=== PATIENT | male | born 1940 | race Caucasian/White ===

== ENCOUNTER 2019-04-15 10:07 | Emergency (ER) | payer OTHER ==
[~2019-04-15] VITALS: Ht 175.2 cm; Wt 86.2 kg
[~2019-04-15 10:07] MED LIST: AMARYL2 MG PO; ASPIR-LOW81 MG PO; BLOOD PRESSURE MED; CHOLESTEROL; CITALOPRAM20 MG PO; FENOFIBRATE160 MG PO; LISINOPRIL/HCTZ1 TA1 PO; LOPRESSOR25 MG PO; METFORMIN500 MG PO; PANTOPRAZOLE40 MG PO; PLAVIX75 MG PO; PRAVACHOL40 MG PO; PRILOSEC20 M1 PO; SUGAR MED; VIAGRA50 MG PO
[2019-04-15 10:48] LABS: BASO % 0.3 % (0.0-1.0); HEMOGLOBIN 15.2 g/dl (14.0-18.0); LYMPH # 0.9 10*3/uL (1.3-4.4); LYMPH % 8.3 % (27.0-41.0); MEAN CELL VOLUME 91.1 fl (80.0-94.0); MEAN CORPUSCULAR HGB 31.5 pg (27.0-31.0); MEAN CORPUSCULAR HGB CONC 34.5 g/dl (33.0-37.0); MONO # 0.5 10*3/uL (0.1-1.0); MONO % 4.6 % (3.0-9.0); NEUT # 9.2 10*3/uL (2.3-7.9); NEUT % 86.3 % (47.0-73.0); PLATELET COUNT AUTOMATED 172 10*3/uL (130-400); RED BLOOD COUNT 4.83 10*6/uL (4.50-5.90); RED CELL DISTRI WIDTH 13.6 % (0-14.5); WHITE BLOOD COUNT 10.7 10*3/uL (4.8-10.8)
[2019-04-15 11:06] LABS: ALBUMIN 3.3 gm/dl (3.1-4.5); CREATININE 1.77 mg/dL (0.70-1.30); POTASSIUM 4.4 mmol/L (3.5-5.1); TOTAL PROTEIN 7.5 gm/dL (6.4-8.2)
[2019-04-15 11:30] LABS: BILIRUBIN NEGATIVE (NEGATIVE); BLOOD 1+ (NEGATIVE); CLARITY SL CLOUDY (CLEAR); COLOR YELLOW (YELLOW); GLUCOSE TRACE (NEGATIVE); KETONE 1+ (NEGATIVE); LEUKO ESTERASE NEGATIVE (NEGATIVE); NITRITE NEGATIVE (NEGATIVE); SPECIFIC GRAVITY 1.025 (1.005-1.030)
[2019-04-15 11:44] LABS: BACTERIA 2+; MUCOUS 1+
[2019-07-31] MEDS ORDERED: PRAVASTATIN SOD80 MG PO (15:42)
[2019-07-31] MEDS ORDERED: LOPRESSOR50 M1 PO (15:44)
[2019-07-31] MEDS ORDERED: PRINIVIL10 MG PO (15:44)
[2019-07-31] MEDS ORDERED: TAMSULOSIN HCL0.4 MG PO (15:45)
== END 2019-04-15 13:30 | disposition short-term general hospital (02) ==
LOC: ED 10:07
PROVIDERS: Nurse Practitioner Family
DX: N13.2 Hydronephrosis with renal and ureteral calculous obstruction (principal); I10 Essential (primary) hypertension; E11.9 Type 2 diabetes mellitus without complications; Z86.73 Personal history of transient ischemic attack (TIA), and cerebral infarction without residual deficits; Z87.442 Personal history of urinary calculi; Z79.899 Other long term (current) drug therapy; Z79.82 Long term (current) use of aspirin; Z79.84 Long term (current) use of oral hypoglycemic drugs

== ENCOUNTER → 2019-08-05 | Day surgery (SDC) | payer OTHER ==
[2019-08-01 11:16] LABS: BASO % 0.6 % (0.0-1.0); EOS # 0.2 10*3/uL (0.0-0.4); EOS % 2.7 % (1.0-4.0); HEMOGLOBIN 13.4 g/dl (14.0-18.0); LYMPH # 1.6 10*3/uL (1.3-4.4); LYMPH % 23.4 % (27.0-41.0); MEAN CELL VOLUME 90.5 fl (80.0-94.0); MEAN CORPUSCULAR HGB 30.3 pg (27.0-31.0); MEAN CORPUSCULAR HGB CONC 33.5 g/dl (33.0-37.0); MONO # 0.5 10*3/uL (0.1-1.0); MONO % 6.9 % (3.0-9.0); NEUT # 4.4 10*3/uL (2.3-7.9); PLATELET COUNT AUTOMATED 152 10*3/uL (130-400); RED BLOOD COUNT 4.42 10*6/uL (4.50-5.90); RED CELL DISTRI WIDTH 13.4 % (0-14.5); WHITE BLOOD COUNT 6.7 10*3/uL (4.8-10.8)
[2019-08-01 11:38] LABS: BUN 22 mg/dl (7-24); CHLORIDE 109 mmol/L (98-107); CREATININE 1.03 mg/dL (0.70-1.30); SODIUM 142 mmol/L (136-145)
[~2019-08-05] VITALS: Ht 175.2 cm; Wt 77.6 kg
[~2019-08-05] MED LIST changes: +LOPRESSOR50 M1 PO; +PRAVASTATIN SOD80 MG PO; +PRINIVIL10 MG PO; +TAMSULOSIN HCL0.4 MG PO; +TRAMADOL HCL50 MG PO
--- NOTE | ~2019-08-05 | EKG ---
[place], [place] ELECTROCARDIOGRAM REPORT NAME: SABRINA SILVERMAN UNIT #: [id number] ROOM: DOCTOR: EPIPHANY DRAFT REPORT BIRTHDATE: [birth year] [facility] Test Date: 2019-08-01 Test Time: 11:02:43 Pat Name: SABRINA SILVERMAN Department: Room: Gender: Landscape Management Technician: Gaye Marcus : 1940 Requested By: ED VALADEZ Order Number: [id number] Reading MD: Renata Lopez MD Measurements Intervals [place] Rate: 56 P: 70 ID: 209 QRS: 41 QRSD: 97 T: 81 QT: 413 QTc: 399 Interpretive Statements Sinus rhythm Abnormal R-wave progression, early transition Baseline wander in lead(s) V3 No previous ECG available for comparison Electronically Signed On 08-03-2019 7:44:56 PDT by Renata Lopez MD CM:EKGRPT:ELECTROCARDIOGRAM REPORT [id number] ED VALADEZ MD [facility] ED VALADEZ MD
[2019-08-05 13:10] VITALS: BP 165/70
[2019-08-05 14:47] VITALS: BP 111/36
[2019-08-05 15:02] VITALS: BP 112/40
[2019-08-05 15:16] VITALS: BP 134/51
== END | disposition home or self-care (01) ==
LOC: SDC 08-01 12:30
DX: C44.629 Squamous cell carcinoma of skin of left upper limb, including shoulder (principal); L72.0 Epidermal cyst; L81.9 Disorder of pigmentation, unspecified; L70.0 Acne vulgaris; I10 Essential (primary) hypertension; E11.9 Type 2 diabetes mellitus without complications; E78.00 Pure hypercholesterolemia, unspecified; K21.9 Gastro-esophageal reflux disease without esophagitis; E66.9 Obesity, unspecified; Z68.25 Body mass index [BMI] 25.0-25.9, adult; Z79.899 Other long term (current) drug therapy; Z98.890 Other specified postprocedural states; Z86.73 Personal history of transient ischemic attack (TIA), and cerebral infarction without residual deficits; Z82.49 Family history of ischemic heart disease and other diseases of the circulatory system

== ENCOUNTER → 2019-08-06 | Outpatient (CLI) | payer OTHER ==
--- NOTE | ~2019-08-06 | PROC NOTE ---
[place], [place] PROCEDURE NOTE NAME: SABRINA SILVERMAN [facility] #: [id number] UNIT #: [id number] ROOM: DOCTOR: DIRKAYAKA BIRTHDATE: [birth year] DOS: 08/06/2019 MODIFIED BARIUM SWALLOW ORDERING PHYSICIAN: Erik Guzman MD RADIOLOGIST: Dr. Sanders. BACKGROUND INFORMATION: The patient is an 79-year-old male who was seen for a modified barium swallow. This test was conducted as an outpatient to assess the pharyngeal phase of the swallow and rule out aspiration. The patient underwent a recent clinical dysphagia evaluation as an outpatient and at that time, he displayed coughing with liquids, which was eliminated with chin tuck. The patient's medical history is significant for CVA 05/29/2019 with resultant dysphagia and dysarthria. The patient also reported suffering a prior CVA approximately 12 years ago with residual left weakness. The patient currently receives a regular diet and thin liquids and uses chin tuck with liquids as instructed. The patient was alert and cooperative for the assessment. Oral peripheral examination revealed presence of several bottom teeth only. Labial skills were mildly reduced in coordination and strength. Lingual movements were slow, but functional. Mildly weak buccal skills were displayed. The patient was able to volitionally swallow. His volitional cough was weak. Respiratory status was within normal limits. The patient does not require oxygen. He was alert and able to follow commands throughout the assessment. METHODS AND MATERIALS USED FOR THE EXAM: The patient was positioned in the lateral plane and the exam was viewed under fluoroscopy. The patient was presented with a variety of consistencies to assess swallowing skills including applesauce mixed with barium presented in half teaspoon amounts, barium-coated cookie given in bite size piece and thin liquid barium taken by cup. This was taken in single sip size amounts with head neutral and in a chin tuck position. ORAL PHASE: The patient achieved adequate labial seal around cup and spoon with no anterior loss. Bolus formation and transit were adequate with all consistencies. Mastication was slow, but functional due to limited dentition. Tongue to palate contact was within normal limits. Tongue retraction was within normal limits with all consistencies. Velar functioning was within normal limits with no nasal regurgitation displayed. PHARYNGEAL PHASE: The pharyngeal swallow triggered within a timely manner. No significant residue was displayed in the pharynx following the swallow. Laryngeal elevation and epiglottic function were reduced with thin liquid with aspiration occurring. A cough was elicited; however, it was weak and ineffective. When the patient was instructed to use a chin tuck, no penetration or aspiration was displayed and there was no penetration or aspiration with puree or solid consistency. ESOPHAGEAL PHASE: This phase of the swallow was not formally assessed during this exam. [place], [place] PROCEDURE NOTE NAME: SABRINA SILVERMAN UNIT #: [id number] ROOM: DOCTOR: AYAKA CAVAZOS BIRTHDATE: [birth year] IMPRESSIONS AND RECOMMENDATIONS: Based upon assessment results, this 79-year-old patient presents with a mild pharyngeal stage dysphagia characterized by aspiration during the swallow with thin liquids due to reduced laryngeal elevation and epiglottic function. When chin tuck maneuver was implemented there was no penetration or aspiration. No difficulty was observed with puree or solid. Recommend, the patient remain on a regular diet and thin liquid with continued use of chin tuck when swallowing liquids. Recommend followup therapy to improve swallowing safety through pharyngeal strengthening exercises, education and adherence to safe swallow precautions. Results and recommendations were shared with the patient, spouse and his outpatient speech pathologist. They verbalized understanding of all information provided. Thank you very much for this referral. Should you have any questions regarding this patient, please contact the speech pathologist at [phone]. AYAKA CAVAZOS CM:PROCNOTE:PROCEDURE NOTE [id number] AYAKA CAVAZOS
--- NOTE | ~2019-08-06 | SLPIE ---
[place], [place] MIXER WET POUR INITIAL EVALUATION NAME: SABRINA SILVERMAN UNIT #: [id number] ROOM: DOCTOR: FRANKLIN BARRERA Patient Name: SABRINA SILVERMAN Date: 08/06/2019 Patient Date of : 1940 [facility] Start of Care: 07/29/2019 Reason for Treatment: PS Primary Care Physician: FRANKLIN BARRERA Referring Physician: FRANKLIN BARRERA Speech-Language Pathology Initial Evaluation Reason for Visit PS Arrival Information Subjective Initial evaluation completed to generate electronic medical record. Refer to [facility] for full evaluation. No indications of abuse or neglect Medical History Details of Present Illness Patient sustained a right-sided cerebral vascular accident on 05-29-2019. Patient was admitted to [facility] for four days. Patient was discharged and admitted to [facility] for 21 days, prior to receiving home health for the month of June. Patient was recommended nectar-thick liquids, but reported he was non-compliant with diet modification. Patient's reports her main concern is patient's speech intelligibility. Prior to cerebral vascular accident, patient's reported she understood everything her said, and now she understands approximately 30% of what he says. She reported patient is "gurgly" and is "unclear" when he speaks. Past Medical History Nutritional/Hydration concerns Medical Surgeries - Kidney stone surgery (April,) Past Medical History Details Patient has past medical history s/f left-sided CVA, approximately 10 years ago which patient reports has had no lasting impact. Patient additionally has history of tobacco use with 50+ years of smoking and chewing tobacco. Patient's additionally reports concern for dehydration. SuperBill Visit Start Time 2:00 PM Visit End Time 3:00 PM Visit Duration 60 minutes Procedures CPT [place] Code Intervention Modifier Minutes Units [id number] MOTION FLUOROSCOPY/SWALLOW 60 1 34491 Total Timed Minutes 0 Total Treatment Minutes 60 Therapist Signature(s) [place], [place] MIXER WET POUR INITIAL EVALUATION NAME: SABRINA SILVERMAN UNIT #: [id number] ROOM: DOCTOR: FRANKLIN BARRERA Signed By: Dipika Strong [facility] [address] License #: [id number] 08/06/2019, 3:04 PM CM:DAVID [address] [facility]
--- NOTE | ~2019-08-06 | SLPPOC ---
[place], [place] COMMERCIAL CREDIT PORTFOLIO MANAGER PLAN OF CARE NAME: SABRINA SILVERMAN UNIT #: [id number] ROOM: DOCTOR: FRANKLIN BARRERA Patient Name: SABRINA SILVERMAN Date: 08/06/2019 Patient Date of : 1940 [facility] Start of Care: 07/29/2019 Reason for Treatment: PS Visits since start of care: 2 Primary Care Physician: FRANKLIN BARRERA Referring Physician: FRANKLIN BARRERA Speech-Language Pathology Initial Evaluation Plan of Care Reason for Visit PS Arrival Information Subjective Initial evaluation completed to generate electronic medical record. Refer to [facility] for full evaluation. No indications of abuse or neglect Medical History Details of Present Illness Patient sustained a right-sided cerebral vascular accident on 05-29-2019. Patient was admitted to [facility] for four days. Patient was discharged and admitted to [facility] for 21 days, prior to receiving home health for the month of June. Patient was recommended nectar-thick liquids, but reported he was non-compliant with diet modification. Patient's reports her main concern is patient's speech intelligibility. Prior to cerebral vascular accident, patient's reported she understood everything her said, and now she understands approximately 30% of what he says. She reported patient is "gurgly" and is "unclear" when he speaks. Past Medical History Nutritional/Hydration concerns Medical Surgeries - Kidney stone surgery (April,) Past Medical History Details Patient has past medical history s/f left-sided CVA, approximately 10 years ago which patient reports has had no lasting impact. Patient additionally has history of tobacco use with 50+ years of smoking and chewing tobacco. Patient's additionally reports concern for dehydration. Therapist Signature(s) Signed By: Dipika Strong State License #: [id number] 08/06/2019, 3:04 PM Referring Physician Signature I certify the need for these services furnished under this plan of treatment and while [place], [place] COMMERCIAL CREDIT PORTFOLIO MANAGER PLAN OF CARE NAME: SABRINA SILVERMAN UNIT #: [id number] ROOM: DOCTOR: FRANKLIN BARRERA under my care. FRANKLIN BARRERA Date/Time CM:APRIL 23 23 [facility]
--- NOTE | ~2019-08-06 | SHMRC ---
[place], [place] [facility]ERAPY [facility] NAME: SABRINA SILVERMAN UNIT #: [id number] ROOM: DOCTOR: FRANKLIN BARRERA Patient Name: SABRINA SILVERMAN Date: 08/06/2019 Patient Number: [id number] Treating Therapist:Dipika Strong Patient Date of : 1940 Location: [facility] Patient Reason for Visit PS Electronic Signature(s) Signed By: Date: Dipika Strong 08/06/2019 15:04:26 Entered By: Dipika Strong on 08/06/2019 15:02:57 Arrival Information Patient Name: SABRINA SILVERMAN Date: 08/06/2019 Patient Number: [id number] Treating Therapist:Dipika Strong Patient Date of : 1940 Location: [facility] Patient Subjective Initial evaluation completed to generate electronic medical record. Refer to [facility] for full evaluation. No indications of abuse or neglect Electronic Signature(s) Signed By: Date: Dipika Strong 08/06/2019 15:04:26 Entered By: Dipika Strong on 08/06/2019 15:02:57 Medical History Patient Name: SABRINA SILVERMAN Date: 08/06/2019 Patient Number: [id number] Treating Therapist:Dipika Strong Patient Date of : 1940 Location: [facility] Patient Details of Present Illness Patient sustained a right-sided cerebral vascular accident on 05-29-2019. Patient was admitted to [facility] for four days. Patient was discharged and admitted to [facility] for 21 days, prior to receiving home health for the month of June. Patient was recommended nectar-thick liquids, but reported he was non-compliant with diet modification. Patient's reports her main concern is patient's speech intelligibility. Prior to cerebral vascular accident, patient's reported she understood everything her said, and now she understands approximately 30% of what he says. She reported patient is "gurgly" and is "unclear" when he speaks. Past Medical History Nutritional/Hydration concerns Medical Surgeries - Kidney stone surgery (April,) Past Medical History Details Patient has past medical history s/f left-sided CVA, approximately 10 years ago which patient reports has had no lasting impact. Patient additionally has history of tobacco use with 50+ years of smoking and chewing [facility] NAME: SABRINA SILVERMAN UNIT #: [id number] ROOM: DOCTOR: FRANKLIN BARRERA. Patient's additionally reports concern for dehydration. Electronic Signature(s) Signed By: Date: Dipika Strong 08/06/2019 15:04:26 Entered By: Dipika Strong on 08/06/2019 15:02:57 Allergy List Patient Name: SABRINA SILVERMAN Date: 08/06/2019 Patient Number: [id number] Treating Therapist:Dipika Strong Patient Date of : 1940 Location: [facility] Patient Electronic Signature(s) Signed By: Date: Dipika Strong 08/06/2019 15:04:26 Entered By: Dipika Strong on 08/06/2019 15:02:57 Arrival Information Patient Name: SABRINA SILVERMAN Date: 08/06/2019 Patient Number: [id number] Treating Therapist:Dipika Strong Patient Date of : 1940 Location: [facility] Patient Subjective Initial evaluation completed to generate electronic medical record. Refer to [facility] for full evaluation. No indications of abuse or neglect Electronic Signature(s) Signed By: Date: Dipika Strong 08/06/2019 15:04:26 Entered By: Dipika Strong on 08/06/2019 15:02:57 SuperBill Patient Name: SABRINA SILVERMAN Date: 08/06/2019 Patient Number: [id number] Treating Therapist:Dipika Strong Patient Date of : 1940 Location: [facility] Patient Diagnosis R13.13 Dysphagia, pharyngeal phase 05/29/2019 I69.322 Dysarthria following cerebral infarction 05/29/2019 Visit Start Time 2:00 PM Visit End Time 3:00 PM Visit Duration 60 minutes Procedures CPT [place] Code Intervention Modifier Minutes Units 87814 [id number] MOTION FLUOROSCOPY/SWALLOW 60 1 Total Timed Minutes 0 Total Treatment Minutes 60 Electronic Signature(s) Signed By: Date: Dipika Strong 08/06/2019 15:04:26 Entered By: Dipika Strong on 08/06/2019 15:03:59 Chief Complaint Patient Name: SABRINA SILVERMAN Date: 08/06/2019 Patient Number: [id number] Treating Therapist:Dipika Strong [place], [place] [facility]APY [facility] NAME: SABRINA SILVERMAN UNIT #: [id number] ROOM: DOCTOR: FRANKLIN BARRERA Patient Date of : 1940 Location: [facility] Patient Reason for Visit PS Electronic Signature(s) Signed By: Date: Dipika Strong 08/06/2019 15:04:26 Entered By: Dipika Strong on 08/06/2019 15:02:57 Medical History Patient Name: SABRINA SILVERMAN Date: 08/06/2019 Patient Number: [id number] Treating Therapist:Dipika Strong Patient Date of : 1940 Location: [facility] Patient Details of Present Illness Patient sustained a right-sided cerebral vascular accident on 05-29-2019. Patient was admitted to [facility] for four days. Patient was discharged and admitted to [facility] for 21 days, prior to receiving home health for the month of June. Patient was recommended nectar-thick liquids, but reported he was non-compliant with diet modification. Patient's reports her main concern is patient's speech intelligibility. Prior to cerebral vascular accident, patient's reported she understood everything her said, and now she understands approximately 30% of what he says. She reported patient is "gurgly" and is "unclear" when he speaks. Past Medical History Nutritional/Hydration concerns Medical Surgeries - Kidney stone surgery (April,) Past Medical History Details Patient has past medical history s/f left-sided CVA, approximately 10 years ago which patient reports has had no lasting impact. Patient additionally has history of tobacco use with 50+ years of smoking and chewing tobacco. Patient's additionally reports concern for dehydration. Electronic Signature(s) Signed By: Date: Dipika Strong 08/06/2019 15:04:26 Entered By: Dipika Strong on 08/06/2019 15:02:57 Allergy List Patient Name: SABRINA SILVERMAN Date: 08/06/2019 Patient Number: [id number] Treating Therapist:Dipika Strong Patient Date of : 1940 [facility] Patient Electronic Signature(s) Signed By: Date: [facility] NAME: SABRINA SILVERMAN UNIT #: [id number] ROOM: DOCTOR: FRANKLIN BARRERA Maryann 08/06/2019 15:04:26 Entered By: Dipika Strong on 08/06/2019 15:02:57 CM:[facility] [id number] [facility]
--- NOTE | 2019-08-06 14:47 | NUR ---
SPEECH PATHOLOGY Outpatient MBS completed as per orders to assess the pharyngeal phase of the swallow and r/o aspiration. 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 Patient reported suffering a prior CVA aproximately 12 years ago with residual left weakness. Patient currently receives a regular diet and thin liquids and uses chin tuck with liquids per kathe. from recent clinical swallowing evaluation. Upon that evaluation, coughing was displayed with liquid, but eliminated with chin tuck. He was alert and cooperative for today's assessment. Results revealed a mild pharyngeal stage dysphagia characterized by aspiration during the swallow due to reduced laryngeal elevation and epiglottic function. When chin tuck maneuver was implemented, there was no penetration or aspiration. No difficulty was observed with puree or solid. Recommend regular diet and thin liquid, with continued use of chin tuck when swallowing liquids. Recommend follow up therapy to improve swallowing safety through pharyngeal strengthening exercises, education and adherence to safety precautions. Results and kathe. were shared with patient, spouse and his outpatient RECEPTIONIST DOCTOR'S OFFICE. They verbalized understanding of all information provided. Dictated report to follow. Thank you for this referral. AYAKA CAVAZOS MSCCC-RECEPTIONIST DOCTOR'S OFFICE
== END | disposition home or self-care (01) ==
LOC: RAD/SH 03:33
DX: I63.9 Cerebral infarction, unspecified (principal); I69.322 Dysarthria following cerebral infarction; R13.10 Dysphagia, unspecified

== ENCOUNTER 2022-11-26 16:32 | Emergency (ER) | payer MEDICARE ==
[2022-11-26 19:13] LABS: BASO % 0.6 % (0.0-1.0); EOS # 0.2 10*3/uL (0.0-0.4); EOS % 2.7 % (1.0-4.0); HEMATOCRIT 35.8 % (42.0-52.0); LYMPH # 1.8 10*3/uL (1.3-4.4); LYMPH % 28.4 % (27.0-41.0); MEAN CELL VOLUME 94.7 fl (80.0-94.0); MEAN CORPUSCULAR HGB 31.2 pg (27.0-31.0); MEAN PLATELET VOLUME 11.8 fl (9.6-12.3); MONO # 0.5 10*3/uL (0.1-1.0); MONO % 7.1 % (3.0-9.0); NEUT # 3.8 10*3/uL (2.3-7.9); PLATELET COUNT AUTOMATED 120 10*3/uL (130-400); RED BLOOD COUNT 3.78 10*6/uL (4.50-5.90); RED CELL DISTRI WIDTH 13.6 % (0-14.5); WHITE BLOOD COUNT 6.3 10*3/uL (4.8-10.8)
[2022-11-26 19:33] LABS: ALKALINE PHOSPHATASE 82 U/L (46-116); BUN 21 mg/dl (9-23); CHLORIDE 107 mmol/L (98-107); POTASSIUM 4.2 mmol/L (3.4-5.1); SGPT/ALT 13 U/L (10-49); TOTAL PROTEIN 6.5 gm/dL (6.0-8.0)
[2022-11-26] MEDS ORDERED: ALBUTEROL2.5 MG/0.5 INH (21:12)
[2022-11-26] MEDS ORDERED: VIBRAMYCIN100 MG PO (21:13)
[2022-11-26] MEDS ORDERED: MEDROL DOSEPAK4 MG PO (21:13)
[2022-11-26] MEDS ORDERED: BENZONATATE150 MG PO (21:13)
== END 2022-11-26 21:20 | disposition home or self-care (01) ==
LOC: ED 16:32
PROVIDERS: Nurse Practitioner Family
DX: J06.9 Acute upper respiratory infection, unspecified (principal); E11.9 Type 2 diabetes mellitus without complications; I10 Essential (primary) hypertension; F17.200 Nicotine dependence, unspecified, uncomplicated; Z79.899 Other long term (current) drug therapy; Z79.82 Long term (current) use of aspirin